=== PATIENT | female | born 1980 | race Caucasian/White ===

== ENCOUNTER 2021-05-13 21:19 | Outpatient (CLI) | payer BC ==
--- NOTE | 2021-05-14 08:55 | Ultrasound Report ---
PROCEDURE: OB First Trimester w/TV INDICATIONS: SUPERVISION OF ELDERLY PRIMIGRAVIDA OUTSIDE/PRIOR DATING DATA: Last menstrual period (LMP): 03/17/2021. LMP-based estimated date of delivery (VALORIE): 12/22/2021. First dating scan (date and location): 05/13/2021. Estimated date of delivery (VALORIE) from first dating scan: 12/20/2021. The below data below was generated using the ultrasound generated VALORIE of 12/20/2021 TECHNIQUE: Real-time scanning was performed of the fetus and maternal pelvic organs, with image documentation. Endovaginal scanning was also performed to better visualize the fetus and maternal ovaries. COMPARISON: None. FINDINGS: Embryo: There is a gestational sac in the uterine fundus measuring approximately 3.3 cm in mean diam eter. Within the gestational sac there is a fetus measuring 1.9 cm in crown-rump length. Average ultr asound age is 8 weeks 3 days. heart rate obtained 176 bpm. Measurement variability in dating: +/- 4 weeks by LMP, +/- 7 days by mean sac diameter (use before 6 weeks gestation if crown-rump length not able to be measured), +/- 5 days by crown-rump length (6-12 weeks gestation). Maternal organs: Ovaries normal in appearance. Left corpus luteum cyst noted. IMPRESSION: Single live intrauterine gestation with estimated age 8 weeks 3 days. Reviewed by: José Miguel Lund MD on 05/14/2021 8:53 AM PDT Approved by: José Miguel Lund MD on 05/14/2021 8:53 AM PDT Station ID: [id number]
== END 2021-05-13 21:20 | disposition home or self-care (01) ==
LOC: DI 21:19
PROVIDERS: ATTEND Nurse Practitioner Women's Health
DX: O09.511 Supervision of elderly primigravida, first trimester (principal); Z3A.08 8 weeks gestation of pregnancy